=== PATIENT | female | born 1975 | race Caucasian/White ===

== ENCOUNTER → 2022-07-06 | Outpatient (CLI) | payer OTHER ==
[2022-07-06 09:54] LABS: HEMATOCRIT 43.4 % (36.0-47.0); HEMOGLOBIN 14.1 g/dl (12.0-15.5); MEAN CORPUSCULAR HEMOGLOBIN 29.4 pg (27.0-33.0); MEAN CORPUSCULAR HGB CONC 32.5 g/dl (32.0-36.5); MEAN CORPUSCULAR VOLUME 90.4 fl (80.0-96.0); PLATELET COUNT, AUTOMATED 292 10^3/uL (150-450); WHITE BLOOD COUNT 7.1 10^3/uL (4.0-10.0)
[2022-07-06 10:29] LABS: ALBUMIN 3.7 G/DL (3.2-5.2); ALKALINE PHOSPHATASE 47 U/L (46-116); ALT/SGPT 11 U/L (7.0-40); AST/SGOT 13 U/L (<34); BILIRUBIN,TOTAL 0.5 MG/DL (0.3-1.2); BLOOD UREA NITROGEN 15 MG/DL (9-23); CALCIUM LEVEL 8.9 MG/DL (8.5-10.1); CARBON DIOXIDE LEVEL 28 MMOL/L (20-31); CHLORIDE LEVEL 104 MMOL/L (98-107); CHOLESTEROL LEVEL 244 MG/DL (<200); CHOLESTEROL RISK RATIO 3.85 (<5); CREATININE FOR GFR 0.77 MG/DL (0.55-1.30); GLOMERULAR FILTRATION RATE > 60.0 (>58); GLUCOSE, FASTING 93 MG/DL (60-100); HDL CHOLESTEROL 63.3 MG/DL (>40); LDL CHOLESTEROL 138.5 MG/DL (<100); NON-HDL-C 181 MG/DL; SODIUM LEVEL 139 MMOL/L (136-145); TOTAL PROTEIN 6.7 G/DL (5.7-8.2); TRIGLYCERIDES LEVEL 211 MG/DL (<150)
[2022-07-06 10:32] LABS: THYROID STIMULATING HORMONE 1.334 uIU/ML (0.55-4.78)
== END ==
LOC: M WUC 08:20
PROVIDERS: ATTEND Physician Assistant
DX: G47.00 Insomnia, unspecified (principal)

== ENCOUNTER 2023-01-06 08:13 | Emergency (ER) | payer OTHER ==
[~2023-01-06] VITALS: Ht 154.9 cm; Wt 60.4 kg
[2023-01-06] MEDS ORDERED: IBUPROFEN 600MG TAB PO ONE (09:10)
[2023-01-06 09:32] LABS: HEMATOCRIT 42.2 % (36.0-47.0); HEMOGLOBIN 14.2 g/dl (12.0-15.5); MEAN CORPUSCULAR HGB CONC 33.6 g/dl (32.0-36.5); MEAN CORPUSCULAR VOLUME 89.2 fl (80.0-96.0); PLATELET COUNT, AUTOMATED 269 10^3/uL (150-450); RED BLOOD COUNT 4.73 10^6/uL (4.00-5.40); WHITE BLOOD COUNT 8.4 10^3/uL (4.0-10.0)
[2023-01-06 10:00] LABS: CPK CREATINE PHOSPHOKINASE 48 U/L (34-145)
[2023-01-06 10:01] LABS: BLOOD UREA NITROGEN 15 MG/DL (9-23); CALCIUM LEVEL 8.7 MG/DL (8.5-10.1); CARBON DIOXIDE LEVEL 25 MMOL/L (20-31); CHLORIDE LEVEL 106 MMOL/L (98-107); CK-MB VALUE MASS < 1.0 NG/ML (<3.6); CREATININE FOR GFR 0.76 MG/DL (0.55-1.30); GLOMERULAR FILTRATION RATE > 60.0 (>58); GLUCOSE, FASTING 104 MG/DL (60-100); MB/CK RELATIVE INDEX 2.08 (< OR =4); POTASSIUM SERUM 3.9 MMOL/L (3.5-5.1); SODIUM LEVEL 138 MMOL/L (136-145)
[2023-01-06] MEDS ORDERED: ACETAMINOPHEN 325 MG TAB PO ONE (10:40)
[2023-01-06 10:47] VITALS: BP 129/75; TEMP 98.4; O2SAT 98
== END 2023-01-06 10:50 | disposition home or self-care (01) ==
LOC: M ED 08:13
DX: M79.662 Pain in left lower leg (principal); E78.5 Hyperlipidemia, unspecified; M54.2 Cervicalgia; Z88.1 Allergy status to other antibiotic agents

== ENCOUNTER 2023-05-15 12:52 | Emergency (ER) | payer OTHER ==
[~2023-05-15] VITALS: Ht 154.9 cm; Wt 58.2 kg
[2023-05-15] MEDS ORDERED: VITMTA PO (13:09)
[2023-05-15 14:03] LABS: BASO % 0.6 % (0.0-1.0); EOS # 0.1 10^3/uL (0.0-0.5); EOS % 0.8 % (0.0-3.0); HEMATOCRIT 44.5 % (36.0-47.0); LYMPH % 30.4 % (24.0-44.0); MEAN CORPUSCULAR HEMOGLOBIN 29.8 pg (27.0-33.0); MEAN CORPUSCULAR HGB CONC 33.7 g/dl (32.0-36.5); MEAN CORPUSCULAR VOLUME 88.3 fl (80.0-96.0); MONO # 0.4 10^3/uL (0.0-0.8); MONO % 5.7 % (2.0-8.0); NEUTROPHILS # 4.1 10^3/uL (1.5-8.5); NEUTROPHILS % 62.2 % (36.0-66.0); PLATELET COUNT, AUTOMATED 300 10^3/uL (150-450); RED BLOOD COUNT 5.04 10^6/uL (4.00-5.40); WHITE BLOOD COUNT 6.5 10^3/uL (4.0-10.0)
[2023-05-15 14:14] LABS: INR 0.95; PROTHROMBIN TIME 12.4 SECONDS (12.5-14.5)
[2023-05-15 14:15] LABS: PARTIAL THROMBOPLASTIN TIME 24.9 SECONDS (24.8-34.2)
[2023-05-15 14:30] LABS: LIPASE 49 U/L (12-53)
[2023-05-15 14:33] LABS: ALBUMIN 3.9 G/DL (3.2-5.2); ALKALINE PHOSPHATASE 49 U/L (46-116); ALT/SGPT 14 U/L (7.0-40); AST/SGOT 11 U/L (<34); BILIRUBIN,DIRECT 0.1 MG/DL (<0.4); BILIRUBIN,TOTAL 0.5 MG/DL (0.3-1.2); BLOOD UREA NITROGEN 13 MG/DL (9-23); CALCIUM LEVEL 9.1 MG/DL (8.5-10.1); CARBON DIOXIDE LEVEL 27 MMOL/L (20-31); CHLORIDE LEVEL 105 MMOL/L (98-107); CK-MB VALUE MASS < 1.0 NG/ML (<3.6); GLOMERULAR FILTRATION RATE > 60.0 (>58); GLUCOSE, FASTING 101 MG/DL (60-100); POTASSIUM SERUM 3.9 MMOL/L (3.5-5.1); SODIUM LEVEL 140 MMOL/L (136-145); TOTAL PROTEIN 6.8 G/DL (5.7-8.2)
[2023-05-15 14:34] LABS: FREE T4 1.37 NG/DL (0.89-1.76)
[2023-05-15 14:35] LABS: CPK CREATINE PHOSPHOKINASE 43 U/L (34-145); MB/CK RELATIVE INDEX 2.32 (< OR =4); THYROID STIMULATING HORMONE 0.648 uIU/ML (0.55-4.78)
[2023-05-15 14:56] LABS: RSV AMPLIFICATION NEGATIVE (NEGATIVE)
[2023-05-15] MEDS ORDERED: ISOVUE-370 76% 100ML VIAL As Ordered ONE (14:56)
[2023-05-15 15:41] LABS: CK-MB VALUE MASS < 1.0 NG/ML (<3.6)
[2023-05-15 15:42] LABS: CPK CREATINE PHOSPHOKINASE 42 U/L (34-145); MB/CK RELATIVE INDEX 2.38 (< OR =4)
[2023-05-15 16:20] VITALS: BP 134/85; TEMP 98.5; O2SAT 100
== END 2023-05-15 16:30 | disposition home or self-care (01) ==
LOC: M ED 12:52
DX: R00.2 Palpitations (principal); Z88.1 Allergy status to other antibiotic agents
CPT/HCPCS: 71045; 71275; 80048; 80076; 82550; 82553; 83690; 83735; 83880; 84439; 84443; 84484; 85025; 85610; 85730; 87631; 93005; 93041; 94760; 99285; Q9967

== ENCOUNTER 2023-05-21 09:44 | Emergency (ER) | payer OTHER ==
[~2023-05-21] VITALS: Ht 154.9 cm; Wt 56.4 kg
[~2023-05-21 09:44] MED LIST changes: -ALPR0.5T3; -BACL10TA2; -ESCITALOPRAM; -ONDA4TAB6 PO
[2023-05-21] MEDS ORDERED: ALPR0.5T3 (10:30)
[2023-05-21] MEDS ORDERED: BACL10TA2 (10:30)
[2023-05-21] MEDS ORDERED: ESCITALOPRAM (10:30)
[2023-05-21 11:49] LABS: BASO # 0.1 10^3/uL (0.0-0.2); BASO % 0.5 % (0.0-1.0); EOS % 0.1 % (0.0-3.0); HEMATOCRIT 44.2 % (36.0-47.0); HEMOGLOBIN 15.1 g/dl (12.0-15.5); LYMPH # 1.7 10^3/uL (1.5-5.0); LYMPH % 15.4 % (24.0-44.0); MEAN CORPUSCULAR HEMOGLOBIN 30.4 pg (27.0-33.0); MEAN CORPUSCULAR HGB CONC 34.2 g/dl (32.0-36.5); MEAN CORPUSCULAR VOLUME 89.1 fl (80.0-96.0); MONO # 0.6 10^3/uL (0.0-0.8); MONO % 5.4 % (2.0-8.0); NEUTROPHILS # 8.6 10^3/uL (1.5-8.5); NEUTROPHILS % 78.1 % (36.0-66.0); PLATELET COUNT, AUTOMATED 318 10^3/uL (150-450); RED BLOOD COUNT 4.96 10^6/uL (4.00-5.40)
[2023-05-21] MEDS ORDERED: ACETAMINOPHEN TAB 650MG DOSE (2X325MG) PO ONE (15:55)
[2023-05-21 18:07] VITALS: TEMP 98.4
[2023-05-21 19:00] VITALS: BP 116/64; O2SAT 97
[2023-05-21] MEDS ORDERED: ONDA4TAB6 PO (19:34)
[2023-05-21] MEDS ORDERED: ONDANSETRON 4MG 2ML VIAL IV ONE (19:35)
[2023-05-22 11:25] LABS: BLOOD UREA NITROGEN 11 MG/DL (7-21); CARBON DIOXIDE LEVEL 22 MEQ/L (22-30); CHLORIDE LEVEL 99 MEQ/L (98-107); CREATININE FOR GFR 0.7 MG/DL (0.7-1.5); GLOMERULAR FILTRATION RATE > 60.0 (>58); GLUCOSE, FASTING 75 MG/DL (70-99); SODIUM LEVEL 139 MEQ/L (134-153)
[2023-05-22 11:26] LABS: ALBUMIN 4.4 G/DL (3.9-5.0); ALKALINE PHOSPHATASE 51 U/L (35-104); ALT/SGPT 9 U/L (1-33); AST/SGOT 13 U/L (5-40); BILIRUBIN,DIRECT < 0.2 MG/DL (0.1-0.4); BILIRUBIN,TOTAL < 0.7 MG/DL (0.2-1.3); CALCIUM LEVEL 9.5 MG/DL (8.4-10.2); LIPASE 48 U/L (13-60); THYROID STIMULATING HORMONE 0.66 UIU/ML (0.47-5.01)
== END 2023-05-21 21:10 | disposition home or self-care (01) ==
LOC: M ED 09:44
DX: R43.9 Unspecified disturbances of smell and taste (principal); R63.4 Abnormal weight loss; R63.0 Anorexia; R00.2 Palpitations; E78.5 Hyperlipidemia, unspecified; M54.2 Cervicalgia; G89.29 Other chronic pain; Z82.49 Family history of ischemic heart disease and other diseases of the circulatory system; Z88.1 Allergy status to other antibiotic agents; Z79.899 Other long term (current) drug therapy; L57.8 Other skin changes due to chronic exposure to nonionizing radiation
CPT/HCPCS: 11102; 70450; 71045; 80047; 80048; 80076; 83605; 83690; 84443; 84484; 84702; 85025; 87040; 87486; 87581; 87633; 87798; 88305; 93005; 93041; 96374; 99285; G0463; J2405

== ENCOUNTER → 2023-05-21 | Outpatient (REF) | payer OTHER ==
[~2023-05-21] MED LIST: ALPR0.5T3; BACL10TA2; ESCITALOPRAM; ONDA4TAB6 PO; VITMTA PO
== END ==
LOC: M SFHCDERM 14:15
PROVIDERS: ATTEND Physician Assistant
DX: L57.8 Other skin changes due to chronic exposure to nonionizing radiation (principal)

== ENCOUNTER 2024-01-27 08:55 | Emergency (ER) | payer OTHER ==
[~2024-01-27] VITALS: Ht 154.9 cm; Wt 58.7 kg
[~2024-01-27 08:55] MED LIST changes: +ALPR0.5T3; +BACL10TA2; +ESCITALOPRAM; +ONDA-282 PO
[2024-01-27 11:16] LABS: BASO % 0.5 % (0.0-1.0); EOS % 0.2 % (0.0-3.0); HEMATOCRIT 47.7 % (36.0-47.0); LYMPH # 2.2 10^3/uL (1.5-5.0); LYMPH % 27.7 % (24.0-44.0); MEAN CORPUSCULAR HGB CONC 33.5 g/dl (32.0-36.5); MEAN CORPUSCULAR VOLUME 89.5 fl (80.0-96.0); MONO # 0.4 10^3/uL (0.0-0.8); MONO % 5.3 % (2.0-8.0); NEUTROPHILS # 5.3 10^3/uL (1.5-8.5); NEUTROPHILS % 66.1 % (36.0-66.0); PLATELET COUNT, AUTOMATED 340 10^3/uL (150-450); RED BLOOD COUNT 5.33 10^6/uL (4.00-5.40); WHITE BLOOD COUNT 8.1 10^3/uL (4.0-10.0)
[2024-01-27] MEDS ORDERED: ISOVUE-370 76% 100ML VIAL As Ordered ONE (11:28)
[2024-01-27 11:47] LABS: FREE T4 1.22 NG/DL (0.89-1.76); THYROID STIMULATING HORMONE 1.027 uIU/ML (0.55-4.78)
[2024-01-27] MEDS ORDERED: HYDR-3363 PO (13:24)
[2024-01-27 13:28] VITALS: BP 136/72; TEMP 98.6; O2SAT 99
== END 2024-01-27 13:37 | disposition home or self-care (01) ==
LOC: M ED 08:55
DX: E04.1 Nontoxic single thyroid nodule (principal); R71.8 Other abnormality of red blood cells; D68.9 Coagulation defect, unspecified; Z88.1 Allergy status to other antibiotic agents; Z88.8 Allergy status to other drugs, medicaments and biological substances; Z79.2 Long term (current) use of antibiotics; Z79.810 Long term (current) use of selective estrogen receptor modulators (SERMs); Z79.899 Other long term (current) drug therapy
CPT/HCPCS: 36415; 70498; 80047; 84439; 84443; 85025; 99284; Q9967

== ENCOUNTER 2024-09-27 07:54 | Emergency (ER) | payer OTHER ==
[~2024-09-27] VITALS: Ht 154.9 cm; Wt 64.4 kg
[~2024-09-27 07:54] MED LIST changes: +HYDR-3363 PO
[2024-09-27] MEDS ORDERED: METO1TAB87 (08:15)
[2024-09-27 10:29] LABS: BASO % 0.4 % (0.0-1.0); EOS # 0.1 10^3/uL (0.0-0.5); EOS % 0.7 % (0.0-3.0); HEMATOCRIT 44.2 % (36.0-47.0); HEMOGLOBIN 14.5 g/dl (12.0-15.5); LYMPH # 2.3 10^3/uL (1.5-5.0); LYMPH % 32.3 % (24.0-44.0); MEAN CORPUSCULAR HEMOGLOBIN 29.6 pg (27.0-33.0); MEAN CORPUSCULAR HGB CONC 32.8 g/dl (32.0-36.5); MEAN CORPUSCULAR VOLUME 90.2 fl (80.0-96.0); MONO # 0.4 10^3/uL (0.0-0.8); MONO % 5.7 % (2.0-8.0); NEUTROPHILS # 4.4 10^3/uL (1.5-8.5); NEUTROPHILS % 60.6 % (36.0-66.0); PLATELET COUNT, AUTOMATED 316 10^3/uL (150-450); WHITE BLOOD COUNT 7.2 10^3/uL (4.0-10.0)
[2024-09-27 10:40] LABS: INR 0.94; PROTHROMBIN TIME 12.9 SECONDS (12.5-14.5)
[2024-09-27 10:54] LABS: BLOOD UREA NITROGEN 15 MG/DL (9-23); CALCIUM LEVEL 8.9 MG/DL (8.5-10.1); CARBON DIOXIDE LEVEL 28 MMOL/L (20-31); CHLORIDE LEVEL 104 MMOL/L (98-107); CREATININE FOR GFR 0.78 MG/DL (0.55-1.30); GLOMERULAR FILTRATION RATE > 60.0 (>58); GLUCOSE, FASTING 102 MG/DL (60-100); POTASSIUM SERUM 3.9 MMOL/L (3.5-5.1); SODIUM LEVEL 140 MMOL/L (136-145)
[2024-09-27] MEDS ORDERED: MAG100TA PO (12:00)
[2024-09-27] MEDS ORDERED: INDO50CA91 PO (12:31)
[2024-09-27 12:42] VITALS: BP 136/75; TEMP 98.3; O2SAT 98
== END 2024-09-27 12:43 | disposition home or self-care (01) ==
LOC: M ED 07:54
DX: N83.292 Other ovarian cyst, left side (principal); M76.31 Iliotibial band syndrome, right leg; Z88.1 Allergy status to other antibiotic agents; Z79.899 Other long term (current) drug therapy

== ENCOUNTER 2025-07-08 19:37 | Emergency (ER) | payer OTHER ==
[~2025-07-08] VITALS: Ht 154.9 cm; Wt 62.0 kg
[~2025-07-08 19:37] MED LIST changes: +INDO50CA91 PO; +MAG100TA PO; +METO1TAB87
[2025-07-08 20:08] VITALS: TEMP 98.4
[2025-07-08 20:16] LABS: BASO # 0.0 10^3/uL (0.0-0.2); BASO % 0.3 % (0.0-1.0); EOS # 0.1 10^3/uL (0.0-0.5); EOS % 0.8 % (0.0-3.0); LYMPH # 4.1 10^3/uL (1.5-5.0); LYMPH % 37.9 % (24.0-44.0); MONO # 0.6 10^3/uL (0.0-0.8); MONO % 5.3 % (2.0-8.0); NEUTROPHILS # 6.0 10^3/uL (1.5-8.5); NEUTROPHILS % 55.4 % (36.0-66.0); PLATELET COUNT, AUTOMATED 306 10^3/uL (150-450)
[2025-07-08 20:40] LABS: CALCIUM LEVEL 9.1 MG/DL (8.5-10.1); CARBON DIOXIDE LEVEL 25 MMOL/L (20-31); CHLORIDE LEVEL 104 MMOL/L (98-107); CPK CREATINE PHOSPHOKINASE 45 U/L (34-145); CREATININE FOR GFR 0.80 MG/DL (0.55-1.30); GLOMERULAR FILTRATION RATE > 90.0 (>58); POTASSIUM SERUM 4.1 MMOL/L (3.5-5.1); SODIUM LEVEL 140 MMOL/L (136-145)
[2025-07-08 20:51] LABS: CK-MB VALUE MASS < 1.0 NG/ML (<3.6)
[2025-07-08] MEDS ORDERED: ISOVUE-370 76% 100 ML VIAL As Ordered ONE (21:03)
[2025-07-08 21:26] LABS: CK-MB VALUE MASS < 1.0 NG/ML (<3.6)
[2025-07-08 21:27] LABS: CPK CREATINE PHOSPHOKINASE 42 U/L (34-145)
[2025-07-08 22:12] LABS: ALT/SGPT 16 U/L (7.0-40); AST/SGOT 17 U/L (<34)
[2025-07-08 22:15] LABS: FREE T4 1.39 NG/DL (0.89-1.76)
[2025-07-08 22:52] VITALS: BP 118/69; O2SAT 98
== END 2025-07-08 23:00 | disposition home or self-care (01) ==
LOC: M ED 19:37
DX: R07.9 Chest pain, unspecified (principal); Z88.1 Allergy status to other antibiotic agents; Z79.899 Other long term (current) drug therapy
CPT/HCPCS: 36415; 71045; 71275; 80048; 80076; 82550; 82553; 83690; 84439; 84443; 84484; 85025; 93005; 93041; 94760; 99285; Q9967